=== PATIENT | male | born 1965 | race Hispanic/Latino ===

== ENCOUNTER → 2020-11-29 | Outpatient (CLI) | payer MEDICARE | END | disposition home or self-care (01) | LOC: SHCH 14:57 | PROVIDERS: ATTEND Internal Medicine Cardiovascular Disease | DX: I25.10 Atherosclerotic heart disease of native coronary artery without angina pectoris (principal); I50.42 Chronic combined systolic (congestive) and diastolic (congestive) heart failure | CPT/HCPCS: 93306; 93356 ==

== ENCOUNTER → 2020-12-27 | Outpatient (CLI) | payer MEDICARE | END | disposition home or self-care (01) | LOC: SHCH 07:34 | PROVIDERS: ATTEND Internal Medicine Cardiovascular Disease | DX: N18.30 Chronic kidney disease, stage 3 unspecified (principal) | CPT/HCPCS: 93975 ==

== ENCOUNTER 2021-12-19 09:28 | Day surgery (SDC) | payer MEDICARE ==
[2021-12-15 12:39] LABS: HEMATOCRIT 36.1 % (42-54); MEAN CORPUSCULAR HEMOGLOBIN 28.3 pg (27.0-33.0); MEAN CORPUSCULAR HGB CONC 31.3 g/dL (32.0-36.0); MEAN CORPUSCULAR VOLUME 90.5 fL (79-99); RED BLOOD CELL COUNT(AUTO) 3.99 MIL/uL (4.50-6.20); WHITE BLOOD COUNT (AUTO) 6.7 K/uL (4.8-10.8)
[2021-12-15 12:50] LABS: CREATININE 3.6 mg/dL (0.5-1.5); POTASSIUM 3.7 mmol/L (3.5-5.1)
[2021-12-15 12:54] LABS: INR 1.05 (0.85-1.15); PROTHROMBIN TIME 11.4 SEC (9.6-11.6)
[2021-12-15 12:55] LABS: PARTIAL THROMBOPLASTIN TIME 35.3 SEC (26.3-35.5)
[2021-12-19] VITALS (16 sets, daily range): BP systolic 160–186; BP diastolic 79–96
[~2021-12-19] VITALS: Ht 182.9 cm; Wt 87.1 kg
[~2021-12-19 09:28] MED LIST: ATOR40TA71 PO; CLOP75TA32 PO; GABA-529 PO; HYDR-4153 PO; ISOS30TA92 PO; LISI2.5T13 PO; METO100T14 PO; SEVE800T27 PO
[2021-12-19] MEDS ORDERED: 0.9% NACL 500ML IV.SOLN 500 ML IV ONE (09:56)
[2021-12-19] MEDS: CEFAZOLIN SODIUM 1 GM VIAL ONE ×2 (10:49→12:30)
[2021-12-19] MEDS ORDERED: CEFAZOLIN SODIUM 1 GM VIAL ONE (11:37)
[2021-12-19] MEDS ORDERED: ONDANSETRON 4MG INJ ONE (12:11)
[2021-12-19] MEDS ORDERED: PROPOFOL 10 MG/ML 20ML VIAL IV ONE (12:11)
[2021-12-19] MEDS ORDERED: MIDAZOLAM HCL 1 MG/ML 2ML VIAL ONE (12:11)
[2021-12-19] MEDS ORDERED: LIDOCAINE PF 100MG/5ML (2%) SYRINGE 5ML ONE (12:11)
[2021-12-19] MEDS ORDERED: DEXAMETHASONE SOD PHOSPHATE 10MG/ML 1ML VIAL ONE (12:11)
[2021-12-19] MEDS ORDERED: FENTANYL CITRATE PF 50 MCG/1 ML 2ML VIAL ONE ×2 (12:12→14:48)
[2021-12-19] MEDS ORDERED: GLYCOPYRROLATE 1 MG/5 ML SYRINGE ONE (12:43)
[2021-12-19] MEDS ORDERED: HYDRALAZINE 20MG/ML VIAL ONE (14:55)
== END 2021-12-19 15:58 | disposition home or self-care (01) ==
LOC: DAH 09:28
PROVIDERS: ATTEND Thoracic Surgery (Cardiothoracic Vascular Surgery)
DX: T82.858A Stenosis of other vascular prosthetic devices, implants and grafts, initial encounter (principal); E11.22 Type 2 diabetes mellitus with diabetic chronic kidney disease; I12.0 Hypertensive chronic kidney disease with stage 5 chronic kidney disease or end stage renal disease; N18.6 End stage renal disease; Z99.2 Dependence on renal dialysis; I25.10 Atherosclerotic heart disease of native coronary artery without angina pectoris; Z79.899 Other long term (current) drug therapy; Z79.01 Long term (current) use of anticoagulants; Z87.891 Personal history of nicotine dependence; Y83.2 Surgical operation with anastomosis, bypass or graft as the cause of abnormal reaction of the patient, or of later complication, without mention of misadventure at the time of the procedure
CPT/HCPCS: 80048; 85027; 85610; 85730; 86850 ×2; 86900 ×2; 86901 ×2; 87426; 36415 ×2; 71045; 93005; 36838; 82948 ×2; A6260; J7040 ×2; J7030; J3010 ×2; J0690 ×2; J3490; J1100; J2001; J0360; J2250; J2704; J2405; J1644; A6206; A6219; G0168; A4649 ×5; C1768; C1713 ×2; A4930; A4215; A4223; A4222; A4221; A4663

== ENCOUNTER 2022-08-21 10:00 | Day surgery (SDC) | payer MEDICARE ==
[2022-08-20 09:15] LABS: HEMATOCRIT 33.3 % (42-54); MEAN CORPUSCULAR HEMOGLOBIN 30.7 pg (27.0-33.0); MEAN CORPUSCULAR HGB CONC 32.1 g/dL (32.0-36.0); MEAN CORPUSCULAR VOLUME 95.7 fL (79-99); RED BLOOD CELL COUNT(AUTO) 3.48 MIL/uL (4.50-6.20); RED CELL DISTRIBUTION WIDTH 14.3 % (11.0-15.5); WHITE BLOOD COUNT (AUTO) 8.7 K/uL (4.8-10.8)
[2022-08-20 09:26] LABS: POTASSIUM 5.6 mmol/L (3.5-5.1)
[2022-08-20 09:27] LABS: INR 1.05 (0.85-1.15); PROTHROMBIN TIME 11.4 SEC (9.6-11.6)
[2022-08-20 09:28] LABS: PARTIAL THROMBOPLASTIN TIME 39.6 SEC (26.3-35.5)
[2022-08-20 09:37] LABS: CREATININE 13.3 mg/dL (0.5-1.5)
[2022-08-20 09:54] VITALS: BP 191/85
[~2022-08-21] VITALS: Ht 182.9 cm; Wt 96.1 kg
[2022-08-21] VITALS (18 sets, daily range): BP systolic 117–203; BP diastolic 56–102
[2022-08-21] MEDS: CEFAZOLIN SODIUM 2 GM VIAL IVPB SCH ×2 (06:00→13:00)
[2022-08-21] MEDS ORDERED: 0.9% NACL 500ML IV.SOLN 500 ML IV ONE (10:28)
[2022-08-21 11:00] LABS: POTASSIUM 4.8 mmol/L (3.5-5.1)
[2022-08-21 11:11] LABS: CREATININE 9.1 mg/dL (0.5-1.5)
[2022-08-21] MEDS ORDERED: LIDOCAINE PF 100MG/5ML (2%) SYRINGE 5ML ONE (13:02)
[2022-08-21] MEDS ORDERED: DEXAMETHASONE SOD PHOSPHATE 4 MG/ML 1ML VIAL ONE (13:02)
[2022-08-21] MEDS ORDERED: ONDANSETRON 4MG INJ ONE (13:03)
[2022-08-21] MEDS ORDERED: NEOSTIGMINE 5MG/5ML SYR IV ONE (13:03)
[2022-08-21] MEDS ORDERED: GLYCOPYRROLATE 1 MG/5 ML SYRINGE ONE (13:03)
[2022-08-21] MEDS ORDERED: MIDAZOLAM HCL 1 MG/ML 2ML VIAL ONE (13:03)
[2022-08-21] MEDS ORDERED: PROPOFOL 10 MG/ML 20ML VIAL IV ONE (13:03)
[2022-08-21] MEDS ORDERED: ROCURONIUM 10MG/1ML SYR 10 MG/ML ML ONE (13:03)
[2022-08-21] MEDS ORDERED: FENTANYL CITRATE PF 50 MCG/1 ML 2ML VIAL ONE (13:04)
[2022-08-21] MEDS ORDERED: LIDOCAINE HCL 1% 20 ML VIAL ONE (13:27)
[2022-08-21] MEDS ORDERED: BUPIVACAINE/PF 0.5% 30ML VIAL ONE (13:27)
[2022-08-21] MEDS ORDERED: SUGAMMADEX SODIUM 200 MG/2 ML VIAL IV ONE (13:46)
[2022-08-21] MEDS ORDERED: HYDRALAZINE 20MG/ML VIAL ONE (14:09)
[2022-08-21] MEDS ORDERED: DEXTROSE 50%-WATER 50 ML DISP.SYRIN IV ONE (14:47)
== END 2022-08-21 15:45 | disposition home or self-care (01) ==
LOC: DAH 10:00
PROVIDERS: ATTEND Thoracic Surgery (Cardiothoracic Vascular Surgery)
DX: T82.898A Other specified complication of vascular prosthetic devices, implants and grafts, initial encounter (principal); Z20.822 Contact with and (suspected) exposure to COVID-19; E11.22 Type 2 diabetes mellitus with diabetic chronic kidney disease; I12.0 Hypertensive chronic kidney disease with stage 5 chronic kidney disease or end stage renal disease; N18.6 End stage renal disease; I25.10 Atherosclerotic heart disease of native coronary artery without angina pectoris; E78.5 Hyperlipidemia, unspecified; I44.0 Atrioventricular block, first degree; Z99.2 Dependence on renal dialysis; Z98.890 Other specified postprocedural states; Z79.899 Other long term (current) drug therapy; Z87.891 Personal history of nicotine dependence; Y83.8 Other surgical procedures as the cause of abnormal reaction of the patient, or of later complication, without mention of misadventure at the time of the procedure
CPT/HCPCS: 80048 ×2; 85027; 85610; 85730; 86850; 86900; 86901; 87426; 36415 ×2; 71045; 93005; 37607; 82948 ×3; A6260; J1100; A4663; J7030; A4215 ×2; A4452; J7040; J3010; J3490 ×2; J2710; J7070; J2001; J0360; J2250; J2704; J2405; J0690; G0168; A4649 ×2; C1713 ×3; A4223; A4222; A4221